=== PATIENT | male | born 1990 | race Caucasian/White ===

== ENCOUNTER 2018-10-28 18:28 | Emergency (ER) | payer MEDICAID, OTHER ==
[~2018-10-28] VITALS: Ht 162.6 cm; Wt 81.4 kg
[2018-10-28 19:00] VITALS: Ht 162.6 cm; Wt 81.4 kg
[2018-10-28] MEDS ORDERED: KETOROLAC 30 MG INJ IM STA (19:09)
[2018-10-28] MEDS ORDERED: OXYCODONE/ACETAMINOPHEN (5/325) TAB PO ONE (19:30)
[2018-10-28] MEDS ORDERED: OXYC-279 PO (21:52)
[2018-10-28] MEDS ORDERED: IBUP-1542 PO (21:52)
--- NOTE | 2018-10-28 22:04 | ERD ---
ER Documentation Chief Complaint Chief Complaint accidentally jumped off a roof x 4 hours ago, c/o pain right foot/ankle HPI 28-year-old man complaining of right foot and ankle pain, swelling after jumping off of a 8 to 10 foot ceiling and landing mostly on his right foot. He denies pain to the low back or ankles, denies chest pain or shortness of breath. He has difficulty bearing weight and localizes the pain to the right foot and heel. ROS All systems reviewed and are negative except as per history of present illness. Medications Home Meds Active Scripts Oxycodone HCl/Acetaminophen (Percocet 5-325 mg Tablet) 1 Each Tablet, 1 EACH PO TID PRN for PAIN LEVEL 6-10, #15 TAB Prov:VINICIUS GARCIA MD 10/28/18 Ibuprofen* (Motrin*) 600 Mg Tab, 600 MG PO Q8 PRN for PAIN AND/OR INFLAMMATION, #60 TAB Prov:VINICIUS GARCIA MD 10/28/18 Allergies Allergies: Coded Allergies: No Known Drug Allergies (Verified Allergy, Unknown, 10/28/18) PMhx/Soc Medical and Surgical Hx: pt denies Medical Hx, pt denies Surgical Hx Hx Alcohol Use: No Hx Substance Use: No Hx Tobacco Use: No Smoking Status: Never smoker FmHx Family History: No diabetes Physical Exam Vitals Vital Signs Date Temp Pulse Resp B/P (MAP) Pulse Ox O2 O2 Flow FiO2 Time Delivery Rate 10/28/18 98.0 109 20 148/81 98 19:00 (103) Physical Exam Const: Well-developed will nourished man, mild discomfort, afebrile Resp: Clear to auscultation bilaterally Cardio: Regular rate and rhythm, no murmurs Abd: Soft, non tender, non distended. Skin: No petechiae or rashes. Soft tissue ecchymosis over the dorsal aspect of the right foot, no lacerations or skin breakdown. Back: No midline or flank tenderness. No lumbar spine or thoracic spine deformity or tenderness, no ecchymosis contusions, hematomas to the back or buttocks Ext: Calves are symmetrical bilaterally, no popliteal cords sign, there is diffuse soft tissue edema to the right foot and ankle without skin erythema Neur: Awake and alert x3, no focal deficits or facial asymmetry, pupils equal round reactive to light Psych: Normal Mood and Affect Results 24 hrs Current Medications Medications Dose Sig/Radha Start Time Status Last (Trade) Ordered Route PRN Stop Time Admin Dose Reason Admin Ketorolac 30 mg ONCE STAT 10/28/18 DC 10/28/18 Tromethamine IM 19:09 19:21 (Toradol) 10/28/18 19:12 Oxycodone/ 1 tab ONCE ONCE 10/28/18 DC 10/28/18 Acetaminophen PO 19:30 19:20 (Percocet 10/28/18 19:31 (5/ 325)) Procedures/MDM I administered Toradol 30 mg IM x1 and Percocet 1 tablet p.o. X-ray left foot 3V Interpreted by me: Bones: No fracture Joints: No dislocation Foreign body: None X-ray right foot 3V Interpreted by me: Bones: Acute comminuted fracture of the right calcaneus Joints: No dislocation Foreign body: None X-ray left ankle 3V Interpreted by me: Bones: No fracture Joints: No dislocation Foreign Body: None X-ray right ankle 3V Interpreted by me: Bones: No fracture of the ankle although there is a comminuted right calcaneus fracture Joints: No dislocation Foreign Body: None X-ray right tib/Fib 2V Interpreted by me: Bones: No fracture Joints: No dislocation Foreign body: None x-ray LS-Spine 3V Interpreted by me: Bones: No fracture, or lytic lesions Joints: No dislocation Foreign body: None I spoke to orthopedic surgeon on-call Dr. Montilla, we discussed the patient's case and x-ray findings, he kindly agreed to see the patient tomorrow morning in his office and to arrange for orthopedic intervention although no emergent surgery required. Instructions were provided to the patient as well as Dr. Montilla's addre ss and phone number, I told the patient to keep the right lower extremity elevated with strict nonweightbearing precautions Right lower extremity was splinted with a posterior long splint wrapped circumferentially with Jamir bandage. Splint Assessment: Neurovascularly intact post splint placement with good fit. Crutches were provided. Patient feels much better at this time, and vital signs are normal, symptoms have improved. I did give strict instructions to return to the ED if symptoms continue or worsen, patient will otherwise follow-up with primary care physician. Patient understood instructions and agreed to plan. Disclaimer: Inadvertent spelling and grammatical errors are likely due to EHR/dictation software use and do not reflect on the overall quality of patient care. Also, please note that the electronic time recorded on this note does not necessarily reflect the actual time of the patient encounter. Departure Diagnosis: Primary Impression: Foot fracture, right Encounter type: initial encounter Fracture type: closed Qualified Codes: S92.901A - Unspecified fracture of right foot, initial encounter for closed fracture Condition: Good Patient Instructions: Fracture, Foot Referrals: REGINA MONTILLA MD, DAVID MD Oct 28, 2018 22:04
[2018-10-28 22:18] VITALS: BP 122/78; PULSE 82; RESP 16
== END 2018-10-28 22:21 | disposition home or self-care (01) ==
LOC: FTE 18:28
DX: S92.061A Displaced intraarticular fracture of right calcaneus, initial encounter for closed fracture (principal); S90.31XA Contusion of right foot, initial encounter; X58.XXXA Exposure to other specified factors, initial encounter; Y92.9 Unspecified place or not applicable
CPT/HCPCS: 29505; 72100; 73590; 73610; 73630; 96372; J1885; Z7502; Z7610